=== PATIENT | female | born 1965 | race Two or more races ===

== ENCOUNTER 2025-01-24 08:03 | Emergency (ER) | payer OTHER ==
[~2025-01-24] VITALS: Ht 170.2 cm; Wt 87.1 kg
[2025-01-24] MEDS ORDERED: SYNTHROID75 MCG (08:27)
[2025-01-24] MEDS ORDERED: 0.9 % SODIUM CHLORIDE 1,000 ML IV STA (08:48)
[2025-01-24] MEDS ORDERED: ONDANSETRON HCL 2 MG/ML VIAL IV STA (08:48)
[2025-01-24 09:51] LABS: HEMATOCRIT 41.7 % (36.0-45.00); HEMOGLOBIN 14.3 g/dL (12.0-15.00); MEAN CELL VOLUME 85.8 fL (80.00-100.00); MEAN CORPUSCULAR HEMOGLOBIN 29.5 pg (27.00-32.0); MEAN CORPUSCULAR HGB CONC 34.3 g/dl (32.0-36.0); PLATELET COUNT 286 K/uL (150-450); RED BLOOD COUNT 4.86 M/uL (4.00-6.00); RED CELL DISTRIBUTION WIDTH 14.9 % (11.5-14.5)
[2025-01-24 10:17] LABS: CALCIUM 8.9 mg/dL (8.5-10.1); CREATININE SERUM 1.34 mg/dL (0.55-1.02); GFR 40.34; POTASSIUM 3.86 mEq/L (3.5-5.1)
[2025-01-24] MEDS ORDERED: FAMOTIDINE/PF 20 MG in 0.9 % SODIUM CHLORIDE 8 ML IV PUSH STA ×2 (10:55→17:16)
[2025-01-24] MEDS ORDERED: KETOROLAC TROMETHAMINE 60 MG VIAL IM ONE (11:00)
[2025-01-24 13:05] LABS: PH,URINE 5.5 (5.0-8.0); URINE APPEARANCE Cloudy; URINE BILIRRUBIN Negative (NEGATIVE); URINE BLOOD Negative; URINE COLOR Dark Yellow; URINE GLUCOSE Negative (NEGATIVE); URINE KETONE Negative (NEGATIVE); URINE LEUKOCYTE Small; URINE NITRATE Negative; URINE PROTEIN Trace (NEGATIVE)
[2025-01-24 13:09] LABS: URINE BACTERIA 6156.4 uL (0.0-1933); URINE CAST 6.33 uL (0.0-1.40); URINE EPITHELIAL CELLS 53.8 uL (0.0-38.8); URINE RBC 7.6 uL (0.0-20.8); URINE WBC 73.1 uL (0.0-23.2)
[2025-01-24] MEDS ORDERED: MORPHINE SULFATE 4 MG/ML VIAL IV ONE ×2 (13:15→16:00)
[2025-01-24 13:21] LABS: URINE CRYSTALS FEW /HPF
[2025-01-24] MEDS ORDERED: CEFTRIAXONE SODIUM 1,000 MG VIAL IV ONE (15:45)
[2025-01-24] MEDS ORDERED: ONDANSETRON HCL 2 MG/ML VIAL IV ONE (17:15)
[2025-01-24] MEDS ORDERED: KETOROLAC TROMETHAMINE 30 MG VIAL IV ONE (19:15)
== END 2025-01-24 19:38 | disposition home or self-care (01) ==
LOC: ER 08:05
PROVIDERS: Emergency Medicine
DX: K52.89 Other specified noninfective gastroenteritis and colitis (principal); N39.0 Urinary tract infection, site not specified; K82.8 Other specified diseases of gallbladder; N20.1 Calculus of ureter; E03.9 Hypothyroidism, unspecified; Z88.8 Allergy status to other drugs, medicaments and biological substances; Z91.013 Allergy to seafood